=== PATIENT | male | born 1960 | race Caucasian/White ===

== ENCOUNTER 2018-07-20 15:31 | Emergency (ER) | payer BC ==
[~2018-07-20] VITALS: Ht 185.4 cm; Wt 127.0 kg
[2018-07-20 15:42] VITALS: BP 133/87
--- NOTE | 2018-07-20 15:42 | NUR ---
ED Nurse Note: AMBULATED IN TO ER DUE TO PROLONG ERECTION X16 HOURS AFTER TAKING A "PILL". PT UNABLE TO PROVIDE EXACT NAME AND DOSE OF THE PILL. DENIES ANY DISCHARGE OR BURNING SENSATION. CO PAIN 10/03.
[2018-07-20] MEDS ORDERED: Phenylephrine 10mg/ml Vial IVP ONE ×2 (16:00→17:00)
[2018-07-20] MEDS ORDERED: Lidocaine 1% MPF 10mg/ml 5ml INJ ONE (16:30)
--- NOTE | 2018-07-20 16:33 | Emergency Room Report ---
History of Present Illness General Chief Complaint: Male Urogenital Problems Source: Patient Present Illness HPI Patient presents to the emergency department today complaining of priapism. Patient has a history of difficulty with erections. Approximately 16 hours before this he injected a medication into his penis space which improved his erection. However he has had a erection and priapism for the last 16 hours. He was seen here by his urologist who he contacted for further evaluation. Patient arrives here denies any chest pain shortness of breath. He does complain of some pain in his genitals. No other complaints are noted. Symptoms noted to be moderate to severe. Case was discussed with Dr. Rain when patient arrived. No other complaints are noted. Symptoms noted to be severe. No other modifying factors. No other associated signs and symptoms. No other complaints were noted. Allergies: Coded Allergies: No Known Allergies (Unverified , 07/20/18) Patient History Past Medical History: other - Impotence. Past Surgical History: none Pertinent Family History: none Social History: Denies: smoking, alcohol use, drug use Reviewed Nursing Documentation: PMH: Agreed; PSxH: Agreed Nursing Documentation-PMH Past Medical History: No Stated History Review of Systems All Other Systems: negative except mentioned in HPI Physical Exam Vital Signs Date Time Temp Pulse Resp B/P (MAP) Pulse Ox O2 Delivery O2 Flow Rate FiO2 07/20/18 15:35 98.2 89 23 133/87 95 Room Air Sp02 EP Interpretation: reviewed, normal General Appearance: normal inspection, well appearing, no apparent distress, alert Head: atraumatic Eyes: bilateral eye normal inspection ENT: normal ENT inspection, hearing grossly normal, normal voice Neck: normal inspection, full range of motion, supple, no bony tend Respiratory: normal inspection, lungs clear, normal breath sounds, no respiratory distress, no retraction, no wheezing Cardiovascular #1: regular rate, rhythm, no edema Gastrointestinal: normal inspection, normal bowel sounds, non tender, soft, no guarding, no hernia Genitourinary: no CVA tenderness, other - Priapism Musculoskeletal: normal inspection, back normal, normal range of motion Neurologic: normal inspection, alert, responsive, speech normal Psychiatric: normal inspection, judgement/insight normal, mood/affect normal Skin: normal inspection, normal color, no rash Medical Decision Making Diagnostic Impression: Primary Impression: Priapism, drug-induced ER Course Patient presents to the emergency department today complaining of priapism. Differential diagnosis include priapism, trauma, infection. Patient's exam and history is consistent priapism. Given patient's presentation and patient will require intervention. Case was discussed with Dr. Rain. He came to the emergency department to evaluate the patient. Per his request we have ordered phenylephrine and lidocaine for anesthetic. Patient will be discharged after he is appropriately treated by the urologist. Patient had resolution of symptoms after injection by urologist. Patient will be discharged with outpatient follow-up. Patient is advised to follow up with primary doctor in 2- 3 days and return the emergency room for any worsening symptoms and as needed. Last Vital Signs Date Time Temp Pulse Resp B/P (MAP) Pulse Ox O2 Delivery O2 Flow Rate FiO2 07/20/18 15:52 89 133/87 07/20/18 15:42 98.2 23 95 Room Air Status: improved Disposition: HOME, SELF-CARE Condition: Stable Referrals: NON PHYSICIAN (PCP) Benjie Tran MD Jul 20, 2018 16:33
[2018-07-20] MEDS ORDERED: Phenylephrine 10mg/ml Vial ONE (16:46)
--- NOTE | 2018-07-20 16:48 | NUR ---
ED Nurse Note: Dr. Cesar at the bed, pt remains stable.
--- NOTE | 2018-07-20 16:49 | NUR ---
ED Nurse Note: received verbal order from ERMD to place another phenylephrine 10mg/1ml viral at the bedside.
[2018-07-20 16:50] VITALS: BP 127/68
[2018-07-20 17:00] VITALS: BP 127/68
--- NOTE | 2018-07-20 17:00 | NUR ---
ED Nurse Note: Pt cleared by health care Provider for discharge. DC instructions/prescription was given and explained to pt and verbalized understanding of teachings. All medical deviecs such as ID band removed. Pt is AAO x4, ambulatory and left with all personal belongings. Denies any pain at this time.
--- NOTE | 2018-07-20 17:04 | NUR ---
ED Nurse Note: pt left dc instructions at the bedside.
== END 2018-07-20 17:02 | disposition home or self-care (01) ==
LOC: EMR 16:00
DX: N48.30 Priapism, unspecified (principal)
CPT/HCPCS: 99283; J2370

== ENCOUNTER 2019-05-30 07:02 | Emergency (ER) | payer BC ==
[~2019-05-30] VITALS: Ht 182.9 cm; Wt 131.5 kg
[2019-05-30] MEDS ORDERED: Phenylephrine 10mg/ml 5ml vial IV ONE (07:07)
[2019-05-30 07:22] VITALS: BP 127/90
--- NOTE | 2019-05-30 07:23 | NUR ---
ED Nurse Note:pt. came in with prolonge penial erection , his doctor walked in with him
--- NOTE | 2019-05-30 07:41 | NUR ---
ED Nurse Note:penial swelling went down after MD intervention, continue monitoring cardiac status
[2019-05-30 07:42] VITALS: BP 168/97
--- NOTE | 2019-05-30 07:44 | Emergency Room Report ---
History of Present Illness General Chief Complaint: Male Urogenital Problems Source: Patient Present Illness HPI 59-year-old male history of erectile dysfunction presented for priapism. States he has had a prolonged erection for the past 18 hours. Patient uses an injectable for erectile dysfunction patient has had 4 previous priapism's in the past. Patient's urologist, Dr. Boateng was called by the patient and he instructed patient to come to ER for phenylephrine injection. Patient complains of pain approximately 7 out of 10 in the penis nothing makes it better or worse. Any other medical history at this time. Allergies: Coded Allergies: No Known Allergies (Unverified , 07/20/18) Patient History Past Medical History: see triage record Reviewed Nursing Documentation: PMH: Agreed; PSxH: Agreed Nursing Documentation-PMH Past Medical History: No History, Except For Hx Hypertension: Yes Review of Systems All Other Systems: negative except mentioned in HPI Physical Exam Vital Signs Date Time Temp Pulse Resp B/P (MAP) Pulse Ox O2 Delivery O2 Flow Rate FiO2 05/30/19 07:12 97.5 91 16 127/90 (102) 98 Room Air Sp02 EP Interpretation: reviewed, normal General Appearance: well appearing, no apparent distress Head: normocephalic, atraumatic Eyes: bilateral eye PERRL, bilateral eye EOMI ENT: hearing grossly normal, moist mucus membranes Neck: full range of motion, supple Respiratory: lungs clear, normal breath sounds, no rhonchi, no respiratory distress, no retraction, no wheezing Cardiovascular #1: normal peripheral pulses, regular rate, rhythm, no murmur Gastrointestinal: non tender, soft, non-distended, no guarding Genitourinary: other - Erect penis noted normal in color Neurologic: alert, oriented x3, no focal defects Skin: normal color, warm/dry Medical Decision Making Diagnostic Impression: Primary Impression: Priapism ER Course Patient presented for priapism after using erectile dysfunction medication, patient was sent to ER by his urologist. Patient had phenylephrine injection by Dr. Boateng, which did allow his erection to resolve. Injection he did experience an episode of hypertension. This finding initially we were going to give medication however his hypertension slowly improved without medication. I believe his hypertension was an adverse reaction to the phenylephrine. If in the ER for approximately 2 hours and blood pressure formalized without medication. At time of discharge she denied any headache chest pain shortness of breath nausea vomiting or any other complaints. Erection had resolved. To follow-up with his urologist next week. Precautions given Rhythm Strip Diag. Results EP Interpretation: yes Rate: 80 Rhythm: NSR, no ectopy Last Vital Signs Date Time Temp Pulse Resp B/P (MAP) Pulse Ox O2 Delivery O2 Flow Rate FiO2 05/30/19 07:22 97.5 91 16 127/90 98 Room Air Status: improved Disposition: HOME, SELF-CARE Condition: Stable Referrals: Guero Boateng MD (PCP) Additional Instructions: Patient is instructed to follow-up with her primary care doctor, primary care clinic or critical access hospital clinic in 1 to 2 days. Patient instructed to return for any worsening symptoms or concerns. Please note that the documentation in this note was used with [employer] dictation technology. Pleae be advised that this may lead to erroneous text due to misinterpretation by the dictation software Dale Koenig M.D. May 30, 2019 07:44
[2019-05-30 08:41] VITALS: BP 115/65
--- NOTE | 2019-05-30 08:45 | NUR ---
ED Nurse Note:pt. is resting no pain BP within normal limits
[2019-05-30 09:05] VITALS: BP 115/65
--- NOTE | 2019-05-30 09:05 | NUR ---
ER DISCHARGE NOTE: Patient is cleared to be discharged per ERMD, pt is aox4, on room air, with stable vital signs. pt was given dc instructions, pt was able to verbalize understanding, pt id band and iv site removed without complications. pt is able to ambulate with steady gait. pt took all belongings.
[2019-05-31] MEDS ORDERED: LIPITOR40 MG ORAL (12:00)
[2019-05-31] MEDS ORDERED: blood pressure pill PO (12:01)
== END 2019-05-30 09:05 | disposition home or self-care (01) ==
LOC: EMR 07:22
DX: N48.30 Priapism, unspecified (principal); I10 Essential (primary) hypertension
CPT/HCPCS: 96360; 99284; J0360; J2370; J7030

== ENCOUNTER 2019-06-03 05:39 | Day surgery (SDC) | payer BC ==
[~2019-06-03] VITALS: Ht 182.9 cm; Wt 131.5 kg
[2019-06-03] VITALS (11 sets, daily range): BP systolic 123–138; BP diastolic 58–78
[~2019-06-03 05:39] MED LIST: LIPITOR40 MG ORAL; blood pressure pill PO
[2019-06-03] MEDS ORDERED: METFORMIN HCL500 M1 ORAL (06:02)
[2019-06-03] MEDS ORDERED: BENICAR HCT 201 EACH ORAL (06:02)
[2019-06-03] MEDS ORDERED: ALLOPURINOL300 M1 ORAL (06:02)
[2019-06-03] MEDS ORDERED: NeoSporin Gu Irrig 1ml Amp IRRIG ONE (07:11)
[2019-06-03] MEDS ORDERED: Bacitracin 50000 Units Vial ONE (07:11)
[2019-06-03] MEDS ORDERED: Hydrogen Peroxide 473ml Bottle TOPIC ONE (07:12)
[2019-06-03] MEDS ORDERED: Bupivacaine 0.5% Inj 30 ml vial INJ ONE (07:13)
[2019-06-03] MEDS ORDERED: LR 1000ml 1,000 ML IVLG SCH (07:13)
--- NOTE | 2019-06-03 07:13 | Anethesia Preoperative Eval ---
Anesthesia Pre-op PMH/ROS General Date of Evaluation: Jun 03, 2019 Anesthesiologist: Danish ASA Score: ASA 3 Mallampati Score Class I : Soft palate, uvula, fauces, pillars visible Class II: Soft palate, uvula, fauces visible Class III: Soft palate, base of uvula visible Class IV: Only hard plate visible Mallampati Classification: Class II Surgeon: Kilo Diagnosis: Impotence Surgical Procedure: Penile prosthesis and circumsicion Anesthesia History: none Family History: no anesthesia problems Allergies: Coded Allergies: No Known Allergies (Unverified , 06/03/19) Medications: see eMAR Patient NPO?: Yes NPO Date: Jun 03, 2019 NPO Time: 00:00 Past Medical History Cardiovascular: Reports: HTN, other - HLD; Denies: CAD, CT, valve dz, arrhythmia Pulmonary: Denies: asthma, COPD, NICKY, other Gastrointestinal/Genitourinary: Reports: GERD; Denies: CRI, ESRD, other Neurologic/Psychiatric: Denies: dementia, CVA, depression/anxiety, TIA, other Endocrine: Denies: DM, hypothyroidism, steroids, other HEENT: Denies: cataract (L), cataract (R), glaucoma, MODOC (L), MODOC (R), other Hematology/Immune: Denies: anemia, DVT, bleeding disorder, other Musculoskeletal/Integumentary: Reports: other - gout; Denies: OA, RA, DJD, DDD, edema Other: obesity - morbid PSxH Narrative: gastric bypass, T&A, lasik Anesthesia Pre-op Phys. Exam Physician Exam Last Vital Signs Date Time Temp Pulse Resp B/P (MAP) Pulse Ox O2 Delivery O2 Flow Rate FiO2 06/03/19 06:05 Room Air 06/03/19 06:04 97.3 59 18 123/78 99 Constitutional: NAD Cardiovascular: RRR Respiratory: CTA Airway Exam Mallampati Score: Class II MO: full Neck: short, obese ROM: full Teeth: intact Anesthesia Pre-op A/P Labs see chart Studies Pre-op Studies: EKG - sr Risk Assessment & Plan Assessment: ASA III Plan: GA Status Change Before Surgery: No Pre-Antibiotics Drug: TBD Given Within 1 Hr of Incision: Yes Fiordaliza Ornelas MD Jun 03, 2019 07:13
[2019-06-03] MEDS ORDERED: Hydromorphone 0.5mg/0.5ml inj IVP PRN (07:15)
[2019-06-03] MEDS ORDERED: fentaNYL 100 mcg/2 mL IV PRN (07:15)
[2019-06-03] MEDS ORDERED: LORazepam Inj 2mg/ml 1ml IV PRN (07:15)
[2019-06-03] MEDS ORDERED: Metoclopramide 10mg/2ml Inj IVP PRN (07:15)
[2019-06-03] MEDS ORDERED: Midazolam 2mg/2ml Inj IVP PRN (07:15)
[2019-06-03] MEDS ORDERED: Ketorolac 30mg Inj IV PRN (07:15)
[2019-06-03] MEDS ORDERED: DiphenhydrAMINE 50mg/ml Inj IVP PRN (07:15)
[2019-06-03] MEDS ORDERED: Vancomycin 1gm vial IVPB ONE (07:21)
[2019-06-03] MEDS ORDERED: Rocuronium Bromide 50mg/5ml Inj IV ONE (07:22)
[2019-06-03] MEDS ORDERED: Sterile Water Irrig 1000ml IRRIG ONE (07:30)
[2019-06-03] MEDS ORDERED: LR 1000ml ONE (07:30)
[2019-06-03] MEDS ORDERED: NS Irrig 1000ml ONE (07:30)
[2019-06-03] MEDS ORDERED: NS Irrig 1000ml IRRIG ONE ×2 (07:34→07:50)
[2019-06-03] MEDS ORDERED: fentaNYL 100 mcg/2 mL IV ONE (07:37)
[2019-06-03] MEDS ORDERED: Propofol 200mg/20ml IV ONE (07:37)
[2019-06-03] MEDS ORDERED: Lidocaine 1% MPF 10mg/ml 5ml ONE (07:37)
[2019-06-03] MEDS ORDERED: Midazolam 2mg/2ml Inj ONE (07:37)
[2019-06-03] MEDS ORDERED: Ketorolac 30mg Inj ONE (09:59)
--- NOTE | 2019-06-03 10:16 | Pre-Procedure Note/Attestation ---
Pre-Procedure Note/Attestation Complete Prior to Procedure Planned Procedure: not applicable Procedure Narrative: circumcision IPP Indications for Procedure Pre-Operative Diagnosis: impotence phimosis Attestation I attest that I discussed the nature of the procedure; its benefits; risks and complications; and alternatives (and the risks and benefits of such alternatives ), prior to the procedure, with the patient (or the patient's legal human resources representative). I attest that, if there was a reasonable possibility of needing a blood transfusion, the patient (or the patient's legal human resources representative) was given the [facility] standardized written summary, pursuant to the [place] Blood Safety Act ([place] Health and Safety Code # 1645, as amended). I attest that I re-evaluated the patient just prior to the surgery and that there has been no change in the patient's H&P, except as documented below: Guero Boateng MD Jun 03, 2019 10:16
--- NOTE | 2019-06-03 10:17 | Brief Operative Note ---
Immediate Post Operative Note Operative Note Pre-op Diagnosis: impotence phimosis Procedure: circumcision IPP Post-op Diagnosis: same Post-op Diagnosis: same as pre-op Surgeon: Max Boateng Anesthesia: general Specimen: yes Complications: none Condition: stable Fluids: 500 Estimated Blood Loss: minimal Implant(s) used?: Yes Guero Boateng MD Jun 03, 2019 10:17
--- NOTE | 2019-06-03 10:22 | Immediate Post-Op Evaluation ---
Immediate Post-Op Evalulation Immediate Post-Op Evalulation Procedure: penile prosthesis and circumcision Date of Evaluation: Jun 03, 2019 Time of Evaluation: 10:24 IV Fluids: 1.4L Blood Products: 0 Estimated Blood Loss: min Urinary Output: 0 Blood Pressure Systolic: 123 Blood Pressure Diastolic: 58 Pulse Rate: 52 Respiratory Rate: 16 O2 Sat by Pulse Oximetry: 99 Temperature (Fahrenheit): 97.7 Pain Score (1-10): 0 Nausea: No Vomiting: No Complications 0 Patient Status: awake, reacts, patent, none Hydration Status: adequate Given Within 1 Hr of Incision: Yes Fiordaliza Ornelas MD Jun 03, 2019 10:22
--- NOTE | 2019-06-03 10:23 | 48 Hour Post Anesthesia Eval ---
Post Anesthesia Evaluation Procedure: penile prosthesis and circumcision Date of Evaluation: Jun 03, 2019 Airway: patent Nausea: No Vomiting: No Pain Intensity: 0 Hydration Status: adequate Cardiopulmonary Status: at baseline Mental Status/LOC: patient returned to baseline Post-Anesthesia Complications: 0 Follow-up care needed: ready to discharge Fiordaliza Ornelas MD Jun 03, 2019 10:23
[2019-06-03] MEDS ORDERED: HYDROcodone/Acetamin 5/325 tab ORAL PRN (15:31)
[2019-06-03] MEDS ORDERED: HYDROmorphone 1mg/ml Carpuject SUBQ PRN (15:31)
[2019-06-03] MEDS ORDERED: Tylenol #3 tab (300mg/30mg) ORAL PRN (15:31)
[2019-06-03] MEDS ORDERED: D5 1/2NS 1,000 ML IV SCH (15:31)
--- NOTE | 2019-06-07 07:45 | Operative Note - Dictated ---
DATE OF OPERATION: 06/03/2019 PREOPERATIVE DIAGNOSES: Phimosis, balanitis, impotence. POSTOPERATIVE DIAGNOSES: Phimosis, balanitis, impotence. OPERATION: Circumcision combined with implantation of 3-piece penile prosthesis. RN PROVIDER RELATIONS: Guero Boateng M.D. ANESTHESIA: General. FINDINGS: Phimosis, balanitis, and obstructed corpora. INDICATIONS FOR SURGERY: The patient had longstanding issues with erectile dysfunction. He has tried different medications and had multiple episodes of priapism after the injection of Trimix. Treatment options were explained to him in great length including all potential complications. He does have recurring balanitis and desired to have circumcision at the same time. All potential complications were explained. He signed the consent. DESCRIPTION OF PROCEDURE: He was brought to the operating room, placed in supine position. Prepped and draped in standard fashion. standard circumcision was performed removing . After circumcision was accomplished reapproximated with 4-0 and 5-0 plain gut. A penoscrotal incision was made. The corpora was mobilized. A 14-Frisian Simms catheter was placed into the urethra to protect. A 3 cm incision was made in both corpora and corpora was dilated to 25 centimeters on each side with 12 Hegar dilator. After that, 700 CX prosthesis with rear tip adapters were placed and left in the corpora. The prosthesis was tested. Position was perfect. The tip of the prosthesis was in the glans penis and good erection with no . After that, prosthesis was deflated and corpora was closed with running 2-0 Vicryl sutures. was placed into the retroperitoneal space through the external inguinal ring and filled with the fluid. After that, pump was placed into the subdartos position in the scrotum, everything was connected through standard connectors and covered with 3 layers of suture, subcuticular closure for the skin and dressing. The patient tolerated the procedure well. No evidence of complications. Guero Boateng M.D. DR: ALMA JOB#: [id number] CC:
== END 2019-06-03 12:45 | disposition home or self-care (01) ==
LOC: SUR 05:39
DX: N47.1 Phimosis (principal); N48.1 Balanitis; N52.9 Male erectile dysfunction, unspecified; E78.5 Hyperlipidemia, unspecified; I10 Essential (primary) hypertension; K21.9 Gastro-esophageal reflux disease without esophagitis; E66.01 Morbid (severe) obesity due to excess calories; Z98.84 Bariatric surgery status; Z68.39 Body mass index [BMI] 39.0-39.9, adult
CPT/HCPCS: 54161; 54405; C1813; J1170; J1580; J1885; J2250; J2704; J3010; J3370; J7120; 94003; 94150